=== PATIENT | male | born 1960 | race Caucasian/White ===

== ENCOUNTER 2023-05-25 06:07 | Day surgery (SDC) | payer BC, SELFPAY ==
--- NOTE | 2023-05-09 12:56 | CM ---
Addendum entered by Rosa Desir 05/09/23 13:07:
VN referral started in [facility] but not sent.
Original Note:
Patient is scheduled for a Robotic Prostatectomy on 05/25/23. Spoke with patient prior to surgery via telephone to complete case management assessment and assess for discharge planning needs. Patient reports that he lives with his and daughter
in a multi story home. There are two steps to enter and a flight of steps to the second floor. He currently functions independently. He has no DME and has never had VN services. He has prescription drug coverage and uses [facility] in [place].
PCP is Dr. Aryan Kebede
Discussed discharge plans. Patient plans to return home at discharge. He states that he will have support from his when he goes home. He has no discharge planning concerns at this time. Discussed possible need for VN services and reviewed
options. Patient does not feel he will need VN services but if services are indicated, he selects [facility].
[2023-05-10 07:59] VITALS: BMI 30.7
[2023-05-10 09:05] LABS: Urine Albumin Trace (Neg - Trace); Urine Bilirubin Negative (Negative); Urine Character Clear (Clear); Urine Color Yellow; Urine Glucose Negative (Negative); Urine Ketone Negative (Negative); Urine Leukocyte Negative (Negative); Urine Nitrite Negative (Negative); Urine Occult Blood Trace (Negative); Urine Urobilinogen Negative (Neg - 1+)
[2023-05-10 09:06] LABS: Hematocrit 37.3 % (39.0-52.0); Hemoglobin 12.6 g/dL (13.0-18.0); Mean Corp Hgb Conc. 33.8 g/dL (33.0-37.0); Mean Corpuscular Hgb 27.6 pg (27.0-31.0); Mean Corpuscular Volume 81.6 fL (80.0-94.0); Mean Platelet Volume 9.8 fL (7.4-10.4); Platelet Count 253 10^3/uL (130-400); Red Blood Cell Count 4.57 10^6/uL (4.70-6.10); Red Cell Dist. Width 14.3 % (11.5-14.5); White Blood Cell Count 5.2 10^3/uL (4.8-10.8)
[2023-05-10 09:30] LABS: Blood Urea Nitrogen 18 mg/dl (9-20); Calcium 9.3 mg/dl (8.4-10.2); Carbon Dioxide 25 mmol/L (22-30); Chloride 102 mmol/L (98-107); Estimated Creatinine Clearance 94 ml/min; Glucose 115 mg/dl (70-99); Sodium 139 mmol/L (135-145); eGFR > 60.00
[2023-05-10 09:44] LABS: Urine Mucus Moderate
[2023-05-10 09:45] LABS: Urine Hyaline Cast 0-2 /LPF (0-2); Urine Squamous Cell 0-2 /LPF (Few); Urine White Cell 0-2 /HPF (0-5)
[2023-05-10 09:46] LABS: Urine Bacteria Few (Negative)
[2023-05-10 10:01] LABS: INR 1.03; PT 13.5 Sec (11.4-14.6)
[2023-05-10 10:02] LABS: APTT 31.5 Sec (23.4-35.0)
[2023-05-25] VITALS (20 sets, daily range): BP systolic 94–147; BP diastolic 59–111; BMI 30.7
[2023-05-25] MEDS: NORMOSOL-R 1000 IV (07:01)
[2023-05-25 14:09] LABS: Hematocrit 37.2 % (39.0-52.0)
[2023-05-25 14:17] LABS: Blood Urea Nitrogen 16 mg/dl (9-20); Calcium 8.2 mg/dl (8.4-10.2); Carbon Dioxide 24 mmol/L (22-30); Chloride 100 mmol/L (98-107); Estimated Creatinine Clearance 84 ml/min; Glucose 198 mg/dl (70-99); Potassium 4.3 mmol/L (3.5-5.1); Sodium 135 mmol/L (135-145); eGFR > 60.00
[2023-05-25] MEDS: TORADOL 15 MG IV ×2 (14:31→22:00)
[2023-05-25] MEDS: ZOFRAN 4 MG IV ×2 (14:34→18:16)
[2023-05-25] MEDS: NSS 1000 IV ×2 (15:08→22:01)
--- NOTE | 2023-05-25 15:12 | SUR.PHASEI ---
picked up patient with TIA - undiagnosed, sats drop intermittently to 82, can improve when stimulated. very sleepy, vss other than sats.
--- NOTE | 2023-05-25 15:39 | SUR.PHASEI ---
Dr Montez called, advised patient continues to have 15- 30sec periods of apnea - sats drop to 82% with O2 on. Question need for CPAP
[2023-05-25] MEDS: PROTONIX 40 MG PO (18:00)
[2023-05-25] MEDS: LOVENOX 40 MG SC (18:00)
[2023-05-25] MEDS: COMPAZINE 10 MG IV (19:31)
--- NOTE | 2023-05-25 19:45 | PTCARENOTE ---
Pt's yelling for help. Upon entry pt was vomiting and wretching. Medicated with PRN compazine per MD orders (refer to MAR). Suction set up at bedside. Dr. Yanes rounding to update pt regarding surgery, pt then with another episode of
vomiting/wretching and appears to have vagaled. Eyes deviated, rowell in color with blank stare briefly. Easily arousable to voice. Assisted with gown change, cool compress provided. Monitoring continues.
--- NOTE | 2023-05-25 21:58 | PTCARENOTE ---
Pt observed sleeping after receiving PRN compazine. Arousable to voice, reports relief of nausea, tolerating small sips of lori rosalba. Refusing oral meds at this time. Reports pain as tolerable. Monitoring continues.
[2023-05-25] MEDS: SENOKOT PO (22:00)
[2023-05-26 03:30] VITALS: BP 121/70
[2023-05-26] MEDS: TORADOL 15 MG IV ×2 (03:35→07:47)
--- NOTE | 2023-05-26 06:11 | PTCARENOTE ---
Pt placed to leg bag. Toure care and leg bag teaching completed at HS. Pt verbalizes understanding. Reports pain as tolerable, denies nausea at present, tolerating lori rosalba. Monitoring continues.
[2023-05-26 06:19] LABS: Hematocrit 30.4 % (39.0-52.0); Hemoglobin 10.2 g/dL (13.0-18.0); Mean Corp Hgb Conc. 33.6 g/dL (33.0-37.0); Mean Corpuscular Hgb 27.6 pg (27.0-31.0); Mean Corpuscular Volume 82.4 fL (80.0-94.0); Mean Platelet Volume 9.9 fL (7.4-10.4); Platelet Count 239 10^3/uL (130-400); Red Blood Cell Count 3.69 10^6/uL (4.70-6.10); Red Cell Dist. Width 14.6 % (11.5-14.5); White Blood Cell Count 10.8 10^3/uL (4.8-10.8)
[2023-05-26 06:27] LABS: Blood Urea Nitrogen 16 mg/dl (9-20); Calcium 7.9 mg/dl (8.4-10.2); Carbon Dioxide 24 mmol/L (22-30); Chloride 107 mmol/L (98-107); Estimated Creatinine Clearance 84 ml/min; Glucose 99 mg/dl (70-99); Potassium 4.2 mmol/L (3.5-5.1); Sodium 134 mmol/L (135-145); eGFR > 60.00
[2023-05-26 07:15] LABS: Hepatitis C Antibody Negative (Negative)
[2023-05-26] MEDS: SENOKOT 8.59999999999999964 MG PO (07:47)
[2023-05-26] MEDS: NORVASC 10 MG PO (07:47)
[2023-05-26] MEDS: ASPIR LOW (ENTERIC COATED) 81 MG PO (07:47)
[2023-05-26 07:50] VITALS: BP 128/81
--- NOTE | 2023-05-26 08:17 | W.PN.URO.CBU ---
Today's Communication / Plan
-
Discharge
Assessment / Plan
-
62M POD 1 s/p robotic prostatectomy
- Reg diet
- OOB/ambulate
- fletcher to leg bag
- IS
- Likely discharge today
Diagnosis
-
Date of Service: May 26, 2023
-
Patient Diagnosis:
Prostate cancer
Post Op Day: s/p RALP 05/24
Subjective
-
nausea and vomiting resolved
feeling better, tolerating liquids
pain controlled
Objective
-
Vital Signs
Temp Pulse Resp BP Pulse Ox
98.2 F 104 18 128/81 94
05/26/23 07:50 05/26/23 07:50 05/26/23 07:50 05/26/23 07:50 05/26/23 07:50
Intake and Output
05/25/23 05/26/23 05/27/23
06:59 06:59 06:59
Intake Total 2820 / 2820
Output Total 1550 / 1550
Balance 1270 / 1270
Intake:
Oral fluids 720 / 720
IV fluids (Total) 2100 / 2100
Normosal 600 / 600
Output:
Urine, Fletcher 1550 / 1550
Laboratory Results
05/26/23 05:11
05/26/23 05:11
Physical Exam
-
General - well developed, well nourished, no acute distress
Chest - clear
Abdomen - soft, non-tender
fletcher in place clear urine
Skin - warm & dry with no rash
Neuro - AOx3, no motor deficits
Extremities - no clubbing, no cyanosis, no edema
Incision - clean, dry
Dressing - clean, dry, intact
--- NOTE | 2023-05-26 09:44 | CM ---
Addendum entered by Estrella Mccall RN 05/26/23 13:26:
Patient's spouse to transport patient home today. VN will follow.
Addendum entered by Estrella Mccall RN 05/26/23 13:25:
Patient now on room air.
Addendum entered by Estrella Mccall RN 05/26/23 09:49:
Patient currently on supplemental O2 @ 5l/min. Need to wean patient from O2 or have O2 home assessment performed.
Original Note:
CM consult for VN received. CM spoke with the patient at the bedside. Patient to be discharged to home with chance. Discussed VN agencies. Patient selected VN. Referral sent. CM continues to be available to patient/family and is monitoring
medical plan for needs at discharge.
Plan: Discharge to home with VN services.
[2023-05-26] MEDS: ATACAND 32 MG PO (10:47)
[2023-05-26 10:50] VITALS: BP 120/68
--- NOTE | 2023-05-26 13:28 | VNURNOTE ---
Home Health Liaison met with patient and Karen at 1130 to discuss [facility] nurse visits, schedule and homebound status. Patient is agreeable and understands that visits at home will be 2-3 x per week to assess and teach medical management and
catheter care.
[facility] brochure provided with contact information. Patient is aware that [facility] will contact him for start of care in 1-2 days after discharge from .
[facility] referral completed previously and accepted in [facility].
== END 2023-05-26 13:33 | disposition home or self-care (01) ==
LOC: SDS 06:07
PROVIDERS: ATTENDING PHYSICIAN Urology; FAMILY PHYSICIAN Physician Assistant; OTHER PHYSICIAN Internal Medicine Hematology & Oncology
DX: C61 Malignant neoplasm of prostate (principal)
CPT/HCPCS: 55866; 38571; 88305; 88307; 88309; 36415; 80048; 81003; 81015; 85014; 85018; 85027; 85610; 85730; 86803; 86850; 86900; 86901; 93005

== ENCOUNTER → 2023-07-03 07:44 | Outpatient (REF) | payer BC, SELFPAY | LOC: MRI 07:44 | PROVIDERS: ATTENDING PHYSICIAN Psychiatry & Neurology Neurology; FAMILY PHYSICIAN Physician Assistant | DX: R93.0 Abnormal findings on diagnostic imaging of skull and head, not elsewhere classified (principal) | CPT/HCPCS: 70553; A9575 ==

== ENCOUNTER → 2023-12-19 06:19 | Day surgery (SDC) | payer BC, SELFPAY | LOC: GI 06:19 | PROVIDERS: ATTENDING PHYSICIAN Internal Medicine Gastroenterology | DX: D50.0 Iron deficiency anemia secondary to blood loss (chronic) (principal); Z86.0101 Personal history of adenomatous and serrated colon polyps; K57.30 Diverticulosis of large intestine without perforation or abscess without bleeding; K64.8 Other hemorrhoids; D12.0 Benign neoplasm of cecum; K63.5 Polyp of colon; R12 Heartburn; K22.2 Esophageal obstruction; K44.9 Diaphragmatic hernia without obstruction or gangrene; Q39.9 Congenital malformation of esophagus, unspecified | CPT/HCPCS: 45380; 45385; 43239; 88305 ==

== ENCOUNTER → 2024-08-19 08:15 | Outpatient (REF) | payer BC, SELFPAY | LOC: MRI 3T 08:15 | PROVIDERS: ATTENDING PHYSICIAN Psychiatry & Neurology Neurology; FAMILY PHYSICIAN Physician Assistant | DX: R93.0 Abnormal findings on diagnostic imaging of skull and head, not elsewhere classified (principal) | CPT/HCPCS: 70551 ==